=== PATIENT | female | born 1990 | race Caucasian/White ===

== ENCOUNTER 2020-10-11 15:56 | Emergency (ER) | payer BC ==
[~2020-10-11] VITALS: Ht 154.9 cm; Wt 65.8 kg
[2020-10-11 16:10] VITALS: BP 113/45
--- NOTE | 2020-10-11 16:16 | NUR ---
PT AMBULATED TO BED 3.
--- NOTE | 2020-10-11 16:20 | NUR ---
ERMD AT BEDSIDE EVALUATING PT.
--- NOTE | 2020-10-11 16:21 | NUR ---
30 Y/O FEMALE C/O VAGINAL BLEEDING X2DAYS WITH SHARP PAIN [id number] AFTER PASSING A BIG BLOOD CLOT TODAY WITH +N. DENIES FEVER/CHILLS. POSITIVE TEST 08/31/20. LMP 08/07/20, 9 WEEKS GESTATION. [id number]. PT C/O 04/27 SUPRAPUBIC/LOWER ABD PAIN ALONG WITH LOWER BACK PAIN. PT STATES FEELS LIKE CRAMPING AND SHARP PAIN. PT DENIES TAKING ANYTHING FOR PAIN. PT STATES 10/09 LIGHT BLEEDING STARTED AND NOW ITS DARK RED WITH BLOOD CLOTS. PT DENIES DYSURIA. PT IS FLAT/SOFT/TENDER WITH ACTIVE BOWEL SOUNDS X4 QUDS. PT AOX4, BREATHING EVEN AND UNLABORED, SKIN WARM AND DRY. BED IN LOWEST POSITION, LOCKED, BED RAIL UPX1. PMH: HYPOTHYROIDISM, ASTHMA RX: LEVOTHYROXINE, ALBUTEROL ALLERGIES:
[2020-10-11] MEDS ORDERED: ACETAMINOPHEN 650 MG/20.3 ML UDC PO ONE (16:30)
--- NOTE | 2020-10-11 16:45 | NUR ---
LAB AT BEDSIDE
--- NOTE | 2020-10-11 16:54 | NUR ---
US AT BEDSIDE
[2020-10-11 16:59] LABS: BASOPHILS # (AUTO) 0.1 K/uL (0.00-0.22); BASOPHILS % (AUTO) 0.7 % (0.0-2.0); EOSINOPHILS # (AUTO) 0.6 K/uL (0-0.4); EOSINOPHILS % (AUTO) 6.2 % (0.0-4.0); HEMATOCRIT 40.8 % (36-48); HEMOGLOBIN 14.1 g/dL (12.0-16.0); LYMPHOCYTES % (AUTO) 31.6 % (20.5-51.1); MEAN CORPUSCULAR HEMOGLOBIN 32 pg (27-31); MEAN CORPUSCULAR HGB CONC 35 g/dL (33-37); MEAN CORPUSCULAR VOLUME 92.2 fL (80-94); MONOCYTES # (AUTO) 0.9 K/uL (0.8-1.0); NEUTROPHILS % (AUTO) 52.5 % (42.2-75.2); PLATELET COUNT (AUTO) 252 K/uL (140-450); RED BLOOD CELL COUNT(AUTO) 4.43 MIL/uL (4.20-5.40); RED CELL DISTRIBUTION WIDTH 12.6 % (11.6-13.7); WHITE BLOOD COUNT (AUTO) 9.6 K/uL (4.8-10.8)
[2020-10-11 17:07] LABS: APPEARANCE,URINE HAZY (CLEAR); BILIRUBIN,URINE NEGATIVE (NEGATIVE); BLOOD, URINE 3+ (NEGATIVE); COLOR,URINE YELLOW (YELLOW); LEUKOCYTE ESTERASE ,URINE NEGATIVE (NEGATIVE); NITRITE, URINE NEGATIVE (NEGATIVE); PH,URINE 5.5 (5.0-9.0); UGLUCOSE NEGATIVE (NEGATIVE)
[2020-10-11] MEDS ORDERED: MORPHINE SULFATE 4 MG/ML SYR IVP ONE (17:25)
[2020-10-11 17:38] LABS: RBC,URINE >100 /HPF (0-5)
[2020-10-11 17:39] LABS: WBC,URINE 0-5 /HPF (0-5)
[2020-10-11] MEDS ORDERED: HYDROmorphone PFS 2 MG/ML SYR IVP ONE (18:05)
--- NOTE | 2020-10-11 18:20 | NUR ---
Pelvic exam performed by Dr. Enriquez with female cancer registrar Ashley MIX at bedside for entire examination. Patient tolerated procedure well. Patient assisted to position of comfort after examination.
[2020-10-11] MEDS ORDERED: IBUP-2213 PO (18:45)
[2020-10-11 19:13] VITALS: BP 113/45
== END 2020-10-11 19:13 | disposition home or self-care (01) ==
LOC: MED 15:56
DX: O03.9 Complete or unspecified spontaneous abortion without complication (principal); E03.9 Hypothyroidism, unspecified; Z3A.09 9 weeks gestation of pregnancy
CPT/HCPCS: 36415; 76817; 81001; 81025; 84702; 85025; 86900; 86901; 96374; 96375; 99284; J1170; J2270

== ENCOUNTER 2021-03-12 23:10 | Emergency (ER) | payer SELFPAY ==
[~2021-03-12] VITALS: Ht 157.5 cm; Wt 73.5 kg
[~2021-03-12 23:10] MED LIST: IBUP-2213 PO
[2021-03-12 23:45] VITALS: BP 95/62
--- NOTE | 2021-03-12 23:49 | NUR ---
PT TAKEN TO BED 11
--- NOTE | 2021-03-12 23:49 | NUR ---
RT CALLED FOR STAT SERVICE
--- NOTE | 2021-03-12 23:51 | NUR ---
Ermd at bedside for medical evaluation.
[2021-03-12] MEDS ORDERED: methylPREDNISolone SS 125 MG/2 ML VIAL IVP ONE (23:55)
[2021-03-12] MEDS ORDERED: ALBUTEROL SULFATE/IPRATROPIU 3 ML SOL IH ONE (23:55)
[2021-03-12] MEDS ORDERED: methylPREDNISolone SS 125 MG/2 ML VIAL ONE (23:55)
--- NOTE | 2021-03-12 23:57 | NUR ---
Respiratory Therapist at bedside for respiratory intervention.
[2021-03-13] MEDS ORDERED: ALBUTEROL SULFATE/IPRATROPIU 3 ML SOL IH ONE ×2 (00:05→00:07)
--- NOTE | 2021-03-13 00:30 | NUR ---
MADELYN REFUSED XRAY, MADELYN WAS EXPLOAINED THE REASON BEHIND THE XRAY ORDER BUT STILL REFUSED. [place] MADE AWARE AND GAVE NEW ORDER FOR XRAY TO BE D/C.
--- NOTE | 2021-03-13 01:15 | NUR ---
PATIENT REMAINS ON SR. PAYROLL MANAGER. PATIENT NOTED WITH NO WHEEZING IN R LUNG. PATIENT NOTED WITH MINIMAL WHEEZINF OF L UPPER LUNG UPON EXPIRATION. PATIENT STATES, "I FEEL BETTER." PATIENT RESTING IN BED WITH EYES CLOSED AND RESPONSIVE TO VERBAL STIMULI.
--- NOTE | 2021-03-13 01:45 | NUR ---
PATIENT CURRENTLY ON 2L OF O2. PATIENT'S O2SAT @ 96%. PER ERMD REQUEST PATIENT TAKEN OFF O2 AND O2SAT WENT DOWN TO 93%. PATIENT STATES,"I FEEL GOOD, I WANT TO GO HOME." ERMD GAVE NEW ORDER FOR POSSIBLE D/C.
[2021-03-13] MEDS ORDERED: PRED20TA5 PO (01:50)
[2021-03-13] MEDS ORDERED: ALBU0.0912 INH (01:50)
[2021-03-13 02:00] VITALS: BP 115/67
--- NOTE | 2021-03-13 02:00 | NUR ---
Patient discharged with v/s stable. Written and verbal after care instructions given and explained. Patient alert, oriented and verbalized understanding of instructions. Ambulatory with steady gait. All questions addressed prior to discharge. ID band removed. Patient advised to follow up with PMD. Rx of ALBUTEROL SULFATE, PREDNISONE given. Patient educated on indication of medication including possible reaction and side effects. Opportunity to ask questions provided and answered.
== END 2021-03-13 02:00 | disposition home or self-care (01) ==
LOC: MED 23:10
DX: O99.519 Diseases of the respiratory system complicating pregnancy, unspecified trimester (principal); J45.901 Unspecified asthma with (acute) exacerbation; Z20.822 Contact with and (suspected) exposure to COVID-19; O99.280 Endocrine, nutritional and metabolic diseases complicating pregnancy, unspecified trimester; E03.9 Hypothyroidism, unspecified; Z79.51 Long term (current) use of inhaled steroids; Z79.899 Other long term (current) drug therapy; Z79.1 Long term (current) use of non-steroidal anti-inflammatories (NSAID); Z88.2 Allergy status to sulfonamides; Z88.1 Allergy status to other antibiotic agents
CPT/HCPCS: 87426; 87804; 94640; 96374; 99291; J2930; U0003; 99284

== ENCOUNTER 2022-10-24 06:15 | Emergency (ER) | payer OTHER ==
[~2022-10-24] VITALS: Ht 157.5 cm; Wt 81.6 kg
[~2022-10-24 06:15] MED LIST changes: +ALBU0.0912 INH; +PRED20TA5 PO
[2022-10-24 06:21] VITALS: BP 125/79
--- NOTE | 2022-10-24 06:26 | NUR ---
TO BED 11 FOLLOWING TRIAGE
--- NOTE | 2022-10-24 06:29 | NUR ---
Patient being evaluated by physician at bedside.
[2022-10-24] MEDS ORDERED: IPRATROPIUM 0.02% 0.5 MG/2.5 ML NEBU INH ONE ×2 (06:30→07:00)
[2022-10-24] MEDS ORDERED: predniSONE 20 MG TAB PO ONE (06:30)
[2022-10-24] MEDS ORDERED: ALBUTEROL 0.083% 2.5 MG/3 ML NEBU INH ONE ×3 (06:30→07:05)
[2022-10-24] MEDS ORDERED: methylPREDNISolone SS 125 MG/2 ML VIAL IVP ONE (06:45)
[2022-10-24 06:56] LABS: BASOPHILS # (AUTO) 0.1 K/uL (0.00-0.22); BASOPHILS % (AUTO) 0.7 % (0.0-2.0); EOSINOPHILS # (AUTO) 0.8 K/uL (0-0.4); EOSINOPHILS % (AUTO) 7.1 % (0.0-4.0); HEMOGLOBIN 14.9 g/dL (12.0-16.0); LYMPHOCYTES # (AUTO) 3.8 K/uL (2.5-16.5); LYMPHOCYTES % (AUTO) 35.8 % (20.5-51.1); MEAN CORPUSCULAR HEMOGLOBIN 29 pg (27-31); MEAN CORPUSCULAR HGB CONC 34 g/dL (33-37); MEAN CORPUSCULAR VOLUME 86.1 fL (80-94); MONOCYTES % (AUTO) 9.9 % (1.7-9.3); NEUTROPHILS # (AUTO) 4.9 K/uL (1.8-7.7); NEUTROPHILS % (AUTO) 46.5 % (42.2-75.2); PLATELET COUNT (AUTO) 276 K/uL (140-450); RED BLOOD CELL COUNT(AUTO) 5.11 MIL/uL (4.20-5.40); RED CELL DISTRIBUTION WIDTH 13.7 % (11.6-13.7); WHITE BLOOD COUNT (AUTO) 10.6 K/uL (4.8-10.8)
[2022-10-24 07:11] LABS: ANION GAP 15.1 (8-16); CARBON DIOXIDE 24.6 mmol/L (21-32); CREATININE 0.8 mg/dL (0.6-1.3); POTASSIUM 3.7 mmol/L (3.5-5.1)
--- NOTE | 2022-10-24 07:30 | NUR ---
PT CALM AND RESTING. VITALS STABLE. ON ROOM AIR, NO ACUTE DISTRESS. PT DOES NOT KNOW HER HOME MED LIST. CALLED DAUGHTER FOR MEDS, PER DAUGHTER, WILL CALL BACK ONCE ABLE TO RETRIEVE IT. WILL HANDOFF TO FLOOR NURSE ONCE TRANSPORTED
--- NOTE | 2022-10-24 08:10 | NUR ---
Everton holder in ED - 10/24/22 at 0821 by [id number] Patient will be admitted to care of DR HAMLIN. Admited to MS. Will go to room 122A. Belongings list completed. Report to AGNIESZKA MIX.
[2022-10-24] MEDS ORDERED: ALBU117P INH (08:39)
[2022-10-24 09:05] VITALS: BP 122/76
== END 2022-10-24 09:05 | disposition home or self-care (01) ==
LOC: MED 06:15
DX: J45.901 Unspecified asthma with (acute) exacerbation (principal); E03.9 Hypothyroidism, unspecified; Z79.899 Other long term (current) drug therapy
CPT/HCPCS: 36415; 80048; 84703; 85025; 94640; 96374; 99284; J2930; J7512; J7613; J7644